=== PATIENT | female | born 1960 | race Two or more races ===

== ENCOUNTER 2020-12-16 07:51 | Emergency (ER) | payer SELFPAY ==
[~2020-12-16] VITALS: Ht 147.3 cm; Wt 48.1 kg
[2020-12-16 08:18] VITALS: BP 172/89
== END 2020-12-16 08:59 | disposition home or self-care (01) ==
LOC: EDSEX 07:51 → ER 07:51
DX: R50.9 Fever, unspecified (principal); R51.9 Headache, unspecified; M79.18 Myalgia, other site; R53.83 Other fatigue; I10 Essential (primary) hypertension; Z20.822 Contact with and (suspected) exposure to COVID-19; Z90.710 Acquired absence of both cervix and uterus; Z98.890 Other specified postprocedural states
CPT/HCPCS: 36415; 87426